=== PATIENT | male | born 1985 | race Caucasian/White ===

== ENCOUNTER 2016-04-05 22:33 | Emergency (ER) | payer BC, OTHER ==
[~2016-04-05] VITALS: Ht 185.4 cm; Wt 79.5 kg
[2016-04-05 22:34] VITALS: BP 136/85; PULSE 67; RESP 16; TEMP 97.8; O2SAT 98
--- NOTE | 2016-04-05 23:06 | PD ---
HPI Chief Complaint: Laceration/Skin Injury Time Seen by Provider: 23:05 Travel History International Travel<30 days: No Contact w/Intl Traveler<30days: No Traveled to known affect area: No History of Present Illness HPI 30-year-old male who is right handed presents to emergency department for evaluation of a laceration sustained to the distal aspect of his right second digit. Patient states he reached into his bag where he had a razor that was uncovered. He cut his finger on this. States it happened about 2 hours ago. Is concerned because it continues to bleed. Patient is uncertain of his tetanus status. Reports moderate pain at the site with palpation otherwise it is a 2 out of 10. Denies any other symptoms at this time. PFSH Past Medical History Medical History: Denies Significant Hx Diminished Hearing: No Immunizations Current: Yes Tetanus Vaccination: Unknown Past Surgical History Other Surgery: Yes (SEPTOPLASTY) Social History Alcohol Use: Yes (OCC) Tobacco Use: No Substance Use: No Allergies-Medications (Allergen,Severity, Reaction): Coded Allergies: No Known Allergies (Unverified , 04/05/16) Reported Meds & Prescriptions Reported Meds & Active Scripts Active Keflex (Cephalexin) 500 Mg Cap 500 Mg PO Q6H 5 Days Review of Systems Except as stated in HPI: all other systems reviewed are Neg Physical Exam Narrative GENERAL: Well-nourished, well-developed male patient in no acute distress SKIN: Warm and dry. 1 cm laceration, well approximated at the distal aspect right second digit. Bleeding is controlled. HEAD: Normocephalic. EYES: No scleral icterus. No injection or drainage. NECK: Supple, trachea midline. No JVD or lymphadenopathy. CARDIOVASCULAR: Regular rate and rhythm without murmurs, gallops, or rubs. RESPIRATORY: Breath sounds equal bilaterally. No accessory muscle use. MUSCULOSKELETAL: No cyanosis, or edema. Patient has full flexion-extension of the affected digit. Sensation intact distal affected digit. Data Data Last Documented VS Vital Signs Date Time Temp Pulse Resp B/P Pulse Ox O2 Delivery O2 Flow Rate FiO2 04/05/16 22:34 97.8 67 16 136/85 98 Room Air Orders Tetanus/Diphtheria Tox Adult (Tetanus/Di (04/05/16 23:15) MDM Medical Decision Making Medical Screen Exam Complete: Yes Emergency Medical Condition: Yes Medical Record Reviewed: Yes Differential Diagnosis Laceration superficial versus deep versus abrasion versus avulsion Narrative Course 30-year-old male presents most prominent for evaluation a laceration to the distal aspect right second digit. Wound is well approximated. It is not bleeding. I have irrigated and cleaned. Bleeding did not restart. It is approximated without difficulty. Patient is counseled on care and agrees to return immediately with any acute worsening symptoms. Procedures Procedure Narrative LACERATION LOCATION: Right second digit] LENGTH: 1 cm NUMBER OF STITCHES/ALYSHA: 1 Steri-Strip REPAIR: The area of the laceration was prepped with Betadine and sterilely draped. . The wound was copiously irrigated and explored without evidence of foreign body, tendon injury or neurovascular injury. The wound was closed using a Steri-Strip. This was a single layer repair. A sterile dressing was applied. The patient was advised to keep the dressing clean and dry. Patient tolerated the procedure well. Diagnosis Primary Impression: Laceration of index finger without complication Qualified Code: S61.218A - Laceration of index finger without complication, initial encounter Referrals: Primary Care Physician Patient Instructions: Finger Laceration (ED), General Instructions Additional Instructions: Keep the area clean and dry You may shower Follow-up with primary care provider Return immediately to the emergency department with any acute worsening of symptoms Med/Other Pt SpecificInfo: Prescription(s) given Scripts Cephalexin (Keflex)500 Mg [id number] Mg PO Q6H 5 Days Ref 0 Prov:Riri Decker 04/05/16 Disposition: 01 DISCHARGE HOME Condition: Stable Riri Decker Apr 05, 2016 23:05
[2016-04-05] MEDS ORDERED: TETANUS/DIPHTHERIA TOXOID ADULT 0.5 ML VIAL IM ONE (23:15)
[2016-04-05] MEDS ORDERED: CEPH-460 PO (23:30)
== END 2016-04-05 23:54 | disposition home or self-care (01) ==
LOC: NEPA 22:33
DX: S61.210A Laceration without foreign body of right index finger without damage to nail, initial encounter (principal); Z23 Encounter for immunization; W45.8XXA Other foreign body or object entering through skin, initial encounter; Y93.89 Activity, other specified; Y92.9 Unspecified place or not applicable
CPT/HCPCS: 90471; 90714